=== PATIENT | female | born 1965 | race Caucasian/White ===

== ENCOUNTER 2020-05-07 06:41 | Day surgery (SDC) | payer MEDICAID ==
[2020-04-30 14:11] LABS: BASOPHILS % (AUTO) 0.2 % (0-1); EOSINOPHILS # (AUTO) 0.4 X10'3 (0-0.9); EOSINOPHILS % (AUTO) 7.3 % (0-6); LYMPHOCYTES # (AUTO) 3.1 X10'3 (1.1-4.8); LYMPHOCYTES % (AUTO) 56.4 % (21-51); MEAN CORPUSCULAR HEMOGLOBIN 32.4 PG (27.0-31.0); MEAN CORPUSCULAR HGB CONC 33.4 g/dL (33.0-36.5); MEAN CORPUSCULAR VOLUME 96.9 FL (78-98); MEAN PLATELET VOLUME 7.3 FL (7.4-10.4); MONOCYTES # (AUTO) 0.4 X10'3 (0-0.9); MONOCYTES % (AUTO) 6.6 % (2-12); NEUTROPHILS # (AUTO) 1.6 X10'3 (1.8-7.7); NEUTROPHILS % (AUTO) 29.5 % (42-75); PRE OP HEMATOCRIT 37.1 % (35.0-45.0); PRE OP HEMOGLOBIN 12.4 g/dL (12.0-16.0); PRE OP PLATELET COUNT 317 X10'3 (140-440); RED BLOOD COUNT 3.83 X10'6 (4.20-5.60); RED CELL DISTRIBUTION WIDTH 13.6 % (11.5-14.5)
[2020-04-30 14:11] LABS: CLARITY,URINE CLEAR (Clear); COLOR,URINE YELLOW (Yellow); GLUCOSE, URINE NEGATIVE (Neg); KETONES,URINE NEGATIVE (Neg); LEUKOCYTE ESTERASE ,URINE NEGATIVE (Neg); NITRITES, URINE NEGATIVE (Neg); OCCULT BLOOD,URINE NEGATIVE (Neg); PROTEIN,URINE NEGATIVE (Neg); UROBILINOGEN,URINE 0.2 E.U/dL (0.2-1.0)
[2020-04-30 14:13] LABS: UA COLLECTION TYPE CLN CATCH MIDSTREAM
[2020-04-30 14:25] LABS: PRE OP PROTIME 10.3 SECONDS (9.0-12.0)
[2020-04-30 14:26] LABS: ALBUMIN 3.7 G/DL (3.4-5.0); ALBUMIN/GLOBULIN RATIO 1.1 (1.1-1.5); ALKALINE PHOSPHATASE 64 IU/L (46-116); BLOOD UREA NITROGEN 15 MG/DL (7-18); BUN/CREATININE RATIO 18.8 (6.6-38.0); CALCIUM 8.9 MG/DL (8.5-10.1); CHLORIDE 106 MMOL/L (99-107); PRE OP ALT 37 U/L (30-65); PRE OP ANION GAP 8 (8-16); PRE OP AST 24 U/L (10-37); PRE OP BILIRUB, TOTAL 0.4 MG/DL (0.0-1.0); PRE OP GLUCOSE 91 MG/DL (70-104); PRE OP POTASSIUM 3.7 MMOL/L (3.4-5.1); PRE OP SODIUM 141 MMOL/L (135-145); TOTAL CARBON DIOXIDE 26.9 MMOL/L (24-32); TOTAL PROTEIN 7.2 G/DL (6.4-8.2); eGFR 74 ML/MIN
[2020-04-30 14:35] LABS: PLATELET ESTIMATE NORMAL; TOTAL CELLS COUNTED 100
[2020-05-07] VITALS (15 sets, daily range): BP systolic 98–119; BP diastolic 61–81
[~2020-05-07] VITALS: Ht 157.5 cm; Wt 64.2 kg
[~2020-05-07 06:41] MED LIST: CYCL-1 PO; IBUP-1986 PO; LEVO88CA2 PO; LORA-269 PO; ceFAZolin 2gm in dextrose, iso 50 ML IV ONE; ceFOXitin 2GM-NS 100mL ADDvant 100 ML IV ONE; famotidine 20mg tablet PO ONE; ringers solution, lacted 1,000 ML IV SCH; scopolamine 1.5mg patch.TD72 TD ONE
[2020-05-07] MEDS ORDERED: morphine 10mg/ml inj. ONE (06:55)
[2020-05-07] MEDS ORDERED: BUPIVAcaine/PF 2.5 mg/ml (0.25%) 30ml vial ONE (06:56)
[2020-05-07] MEDS ORDERED: LIDOcaine 1% 30ml preserv. free vial ONE (06:56)
[2020-05-07] MEDS ORDERED: meperidine/PF 25mg/ml syringe IV PRN ×3 (07:15)
[2020-05-07] MEDS ORDERED: morphine 4 MG/ML inj SYRINge IV PRN (07:15)
[2020-05-07] MEDS ORDERED: morphine 2 MG/ML inj. syringe IV PRN (07:15)
[2020-05-07] MEDS ORDERED: proCHLORperazine 10 MG/2 ml inj IV PRN (07:15)
[2020-05-07] MEDS ORDERED: ringers solution, lacted 1,000 ML IV SCH (07:15)
[2020-05-07] MEDS ORDERED: acetaminophen 1,000mg/100ml IV 100 ML IV PRN (07:15)
[2020-05-07] MEDS ORDERED: ondansetron/PF 4mg/2ml inj IV PRN (07:15)
[2020-05-07] MEDS ORDERED: ketorolac trometh. 30mg/ml inj. ONE (08:15)
[2020-05-07] MEDS ORDERED: fentaNYL/PF 50MCG/1 ML 2ML syringe ONE (08:18)
[2020-05-07] MEDS ORDERED: midazolam 2 mg/2 ml injection ONE (08:21)
[2020-05-07] MEDS ORDERED: LIDOcaine 2% 5ml jelly ONE (08:22)
[2020-05-07] MEDS ORDERED: rocuronium 10mg/ml inj IV ONE (08:33)
[2020-05-07] MEDS ORDERED: propofol inj 20 ML IV ONE ×7 (08:33→08:36)
[2020-05-07] MEDS ORDERED: dexamethasone sod phosphate 4mg/ml inj. ONE (08:34)
[2020-05-07] MEDS ORDERED: ondansetron/PF 4mg/2ml inj ONE (08:34)
[2020-05-07] MEDS ORDERED: LIDOcaine 2% (20mg/ml) 5ml vial ONE (08:34)
[2020-05-07] MEDS ORDERED: acetaminophen 1,000mg/100ml IV 100 ML IV ONE (09:00)
[2020-05-07] MEDS ORDERED: glycopyrrolate 0.2mg/ml inj ONE (09:12)
[2020-05-07] MEDS ORDERED: neostigmine methylsulfate 1 MG/ML 10ml vial ONE (09:13)
[2020-05-07] MEDS ORDERED: sugammadex 200mg/2ml injection IV ONE (09:17)
--- NOTE | 2020-05-07 09:35 | NUR ---
Received from OR via [facility] , accompanied by Anesthesiologist DR KIM and report given by Anesthesiolgist. PATIENT SLEEPING, NO C/O PAIN, V/S WNL MASK ON AT 10LTRS, 20G PIV LAC - LR RUNNING, SCDS ON, LAP SITES X 3 TO ABDOMEN-CDI, F/C REMOVED UPON ARRIVAL-YELLOW URINE NOTED IN BAG, CHEO PAD IN PLACE NOW
--- NOTE | 2020-05-07 11:55 | NUR ---
PATIENT A&OX4, DENIES PAIN-SOME NAUSEA REMAINING EVEN AFTER IV ZOFRAN BUT NO EMESIS-SENT WITH EMESIS BAG JUST IN CASE, V/S WNL, NEUROVASCULAR CHECKS INTACT, 20G PIV LUE D/C WITH NO COMPLICATIONS OBSERVED, SCD OFF, 3 BANDAIDS TO LAP SITES OF ABDOMEN-CDI. FRESH CHEO PAD GIVEN TO PATIENT. I HAVE REVIEWED D/C INSTRUCTIONS WITH PATIENT AND FAMILY AND THEY HAVE VERBALIZED UNDERSTANDING, GIVEN PAPER RX FOR PAIN MEDS. PATIENT D/C HOME WITH FAMILY TO TRANSPORT AND ALL BELONGINGS.
== END 2020-05-07 11:55 | disposition home or self-care (01) ==
LOC: PAS 06:41
PROVIDERS: ATTEND Obstetrics & Gynecology
DX: R19.00 Intra-abdominal and pelvic swelling, mass and lump, unspecified site (principal); D25.9 Leiomyoma of uterus, unspecified; N73.6 Female pelvic peritoneal adhesions (postinfective); N83.8 Other noninflammatory disorders of ovary, fallopian tube and broad ligament; F32.9 Major depressive disorder, single episode, unspecified; F41.9 Anxiety disorder, unspecified; F41.0 Panic disorder [episodic paroxysmal anxiety]; M13.88 Other specified arthritis, other site; E03.9 Hypothyroidism, unspecified; Z88.8 Allergy status to other drugs, medicaments and biological substances; Z98.51 Tubal ligation status; Z98.890 Other specified postprocedural states; Z87.891 Personal history of nicotine dependence; Z79.899 Other long term (current) drug therapy; Z79.01 Long term (current) use of anticoagulants; Z20.822 Contact with and (suspected) exposure to COVID-19
CPT/HCPCS: 36415; 58661; 80053; 81003; 82948; 85025; 85610; 85730; 86885; 86900; 86901; 87635; 93005; C1758; C9399; J0131; J0694; J1100; J1885; J2001; J2250; J2270; J2405; J2704; J2710; J3010; J3490; 85007; A4618; J7120